=== PATIENT | male | born 1955 | race Caucasian/White ===

== ENCOUNTER 2016-04-18 18:39 | Emergency (ER) | payer MEDICARE ==
[~2016-04-18] VITALS: Ht 180.3 cm; Wt 95.0 kg
[~2016-04-18 18:39] MED LIST changes: -NIACIN FLUSH F400 MG PO
[2016-04-18 18:41] VITALS: TEMP 97.9
[2016-04-18] MEDS ORDERED: NIACIN FLUSH F400 MG PO (18:59)
[2016-04-18 19:01] LABS: BASO % 0.3 % (0.0-2.0); EOS # 0.2 (0.0-0.7); EOS % 2.3 % (0-4.0); GRAN # 6.1 (1.4-6.5); GRAN % 65.2 % (42.2-75.2); HEMATOCRIT 49.3 % (42.0-52.0); HEMOGLOBIN 16.8 g/dl (13.5-18.0); LYMPH # 2.2 (1.2-3.4); LYMPH % 23.2 % (20.0-51.0); MEAN CELL VOLUME 90 fl (80.0-100.0); MEAN CORPUSCULAR HEMOGLOBIN 31 pg (27.0-31.0); MEAN CORPUSCULAR HGB CONC 34 g/dl (33.0-37.0); MEAN PLATELET VOLUME 9.8 fl (7.4-10.4); MONO # 0.8 (0.1-0.6); MONO % 8.5 % (1.7-9.3); PLATELET COUNT 261 K/mm3 (130-400); RED BLOOD COUNT 5.48 M/mm3 (4.20-5.60); REDCELL DISTRIBUTION WIDTH-CV 12.2 % (11.5-14.5); WHITE BLOOD COUNT 9.4 K/mm3 (4.8-10.8)
[2016-04-18 19:05] LABS: PROTHROMBIN TIME 11.3 SECONDS (9.7-12.8)
[2016-04-18 19:08] LABS: PARTIAL THROMBOPLASTIN TIME 31.6 SECONDS (26.0-37.0)
[2016-04-18 19:11] LABS: ADJUSTED CALCIUM 9.9 mg/dL (8.4-10.2); ALANINE AMINOTRANSFERASE 41 U/L (21-72); ALBUMIN 3.9 gm/dL (3.5-5.0); ALKALINE PHOSPHATASE 92 U/L (50-136); ANION GAP 14 mmol/L (7-16); BILIRUBIN,TOTAL 0.8 mg/dL (0.0-1.0); BLOOD UREA NITROGEN 17 mg/dL (9-20); CALCIUM 9.8 mg/dL (8.4-10.2); CARBON DIOXIDE 27 mmol/L (22-30); CHLORIDE 99 mmol/L (98-107); CREATININE, serum 1.28 mg/dL (0.66-1.25); GLUCOSE 147 mg/dL (74-106); LIPASE 51 U/L (23-300); POTASSIUM 3.9 mmol/L (3.4-5.0); SODIUM 139 mmol/L (137-145); TOTAL PROTEIN 8.5 gm/dL (6.4-8.2)
[2016-04-18 19:22] LABS: TROPONIN-I < 0.012 ng/mL (0.000-0.034)
[2016-04-18 19:59] VITALS: BP 132/92; PULSE 95
== END 2016-04-18 19:24 | disposition short-term general hospital (02) ==
LOC: COL.ER 18:39
PROVIDERS: Emergency Medicine
DX: I21.09 ST elevation (STEMI) myocardial infarction involving other coronary artery of anterior wall (principal); R94.31 Abnormal electrocardiogram [ECG] [EKG]; I10 Essential (primary) hypertension; I25.10 Atherosclerotic heart disease of native coronary artery without angina pectoris; Z87.891 Personal history of nicotine dependence
CPT/HCPCS: J1644; J3101

== ENCOUNTER → 2016-04-18 | Outpatient (REF) ==
[~2016-04-18] MED LIST: ASPIRIN 81M81 MG/TA2 PO; ASPIRIN E.C. 8181 MG PO; BRILINTA90 MG PO; COLACE 100100 MG/CAP PO; FLONASE NASAL S16 GM NS; GLUCOPHAGE500 MG/TAB PO; LEVEMIR FLEXPEN SC; LIPITOR 80MG80 MG PO; LOPRESSOR 225 MG/TAB PO; MEVACOR40 MG PO; NIACIN FLUSH F400 MG PO; NIACIN500 M3 PO; NITROSTAT0.4 MG/TAB SL; NORCO 325 MG-51 TAB PO; NOVOLOG 100U100 U/M1 SC; PLAVIX 75MG TAB75 MG PO; PRINIVIL2.5 MG PO; PROTONIX 40MG T40 MG PO; PROVENTIL0.09 MG/A1 IH
== END ==
LOC: ZLAB.WCH 14:43
DX: Z01.89 Encounter for other specified special examinations (principal)

== ENCOUNTER → 2016-05-02 | Outpatient (REF) ==
[~2016-05-02] MED LIST changes: +NIACIN FLUSH F400 MG PO
== END ==
LOC: ZLAB.WCH 14:44
DX: Z01.89 Encounter for other specified special examinations (principal)

== ENCOUNTER → 2016-06-10 | Outpatient (REF) | LOC: ZLAB.WCH 14:42 | DX: Z01.89 Encounter for other specified special examinations (principal) ==

== ENCOUNTER → 2016-09-06 | Outpatient (REF) | LOC: ZLAB.WCH 10:37 | DX: Z01.89 Encounter for other specified special examinations (principal) ==

== ENCOUNTER → 2016-12-20 | Outpatient (REF) | LOC: ZLAB.WCH 15:41 | DX: Z01.89 Encounter for other specified special examinations (principal) ==

== ENCOUNTER → 2017-01-24 | Outpatient (REF) ==
[2017-01-24 21:44] LABS: THYROID STIMULATING HORMONE 2.14 uIU/mL (0.465-4.680)
== END ==
LOC: ZLAB.WCH 20:56
PROVIDERS: Family Medicine
DX: Z01.89 Encounter for other specified special examinations (principal)

== ENCOUNTER → 2017-03-27 | Outpatient (REF) | LOC: ZLAB.WCH 18:02 | DX: Z01.89 Encounter for other specified special examinations (principal) ==

== ENCOUNTER → 2017-04-04 | Outpatient (CLI) | payer MEDICARE | LOC: COL.RAD 07:48 | DX: I77.810 Thoracic aortic ectasia (principal) | CPT/HCPCS: Q9967 ==

== ENCOUNTER → 2017-07-24 | Outpatient (REF) | LOC: ZLAB.WCH 17:54 | DX: Z01.89 Encounter for other specified special examinations (principal) ==

== ENCOUNTER → 2017-11-05 | Outpatient (REF) ==
[2017-11-05 16:53] LABS: TSH w REFLEX 4.93 uIU/mL (0.465-4.680)
== END ==
LOC: ZLAB.WCH 16:03
PROVIDERS: Psychiatry & Neurology Neurology
DX: Z01.89 Encounter for other specified special examinations (principal)

== ENCOUNTER → 2017-11-14 | Outpatient (REF) | LOC: ZLAB.WCH 16:07 | DX: Z01.89 Encounter for other specified special examinations (principal) ==

== ENCOUNTER → 2018-04-15 | Outpatient (REF) | LOC: ZLAB.WCH 16:07 | DX: Z01.89 Encounter for other specified special examinations (principal) ==

== ENCOUNTER 2022-01-29 23:20 | Inpatient (IN) | payer MEDICARE, MEDICAID ==
[~2022-01-29] VITALS: Ht 180.3 cm; Wt 99.1 kg
[2022-01-29 23:25] VITALS: BP 125/73; PULSE 65; TEMP 97.8
[2022-01-30] MEDS ORDERED: TOUJEO MAX300 UNIT/1 SQ (00:17)
[2022-01-30] MEDS ORDERED: LASIX 20MG TABL20 MG PO (00:19)
[2022-01-30] MEDS ORDERED: COREG12.5 MG PO (00:23)
[2022-01-30] MEDS ORDERED: SINEMET CR1 UDTAB.S1 PO ×2 (00:24→00:56)
[2022-01-30] MEDS ORDERED: JARDIANCE10 PO (00:26)
[2022-01-30] MEDS ORDERED: ALTACE 2.5MG T2.5 MG PO (00:56)
[2022-01-30] MEDS ORDERED: CRESTOR20 MG PO (01:00)
[2022-01-30] MEDS ORDERED: LOFIBRA160 MG PO (01:01)
[2022-01-30 03:52] VITALS: BP 125/77; PULSE 52; TEMP 97.7
[2022-01-30 06:38] LABS: HEMOGLOBIN 13.8 g/dl (13.5-18.0); MEAN CELL VOLUME 98 fl (80.0-100.0); MEAN CORPUSCULAR HEMOGLOBIN 32 pg (27-31); MEAN CORPUSCULAR HGB CONC 32 g/dl (33.0-37.0); MEAN PLATELET VOLUME 10.7 fl (7.4-10.4); PLATELET COUNT 259 K/mm3 (130-400); RED BLOOD COUNT 4.38 M/mm3 (4.20-5.60); REDCELL DISTRIBUTION WIDTH-CV 13.3 % (11.5-14.5)
[2022-01-30 06:55] LABS: ALBUMIN 2.7 gm/dL (3.4-4.8); BILIRUBIN,TOTAL 0.5 mg/dL (0.2-1.2); CALCIUM 9.4 mg/dL (8.4-10.2); CHOLESTEROL RISK RATIO 3.7; CREATININE, serum 3.05 mg/dL (0.72-1.25); POTASSIUM 5.2 mmol/L (3.5-4.5); TOTAL PROTEIN 7.8 gm/dL (6.2-8.1)
[2022-01-30 07:21] VITALS: BP 134/68; PULSE 68; TEMP 97.8
--- NOTE | 2022-01-30 10:09 | NUR ---
PT RESTING IN BED. MORNING MEDICATIONS GIVEN. SHIFT ASSESSMENT COMPLETED. PT CURRENTLY BREATHING ON 2L OF O2 VIA NC. PT STATES HE DOES NOT FEEL SOB AT REST WITH OXYGEN IN PLACE. DENIES ANY PAIN. CALL LIGHT WITHIN REACH. FALL PRECAUTIONS IN PLACE. WILL CONTINUE TO MONITOR.
--- NOTE | 2022-01-30 10:32 | NUR ---
Initial visit; A very robust friendly fellow who welcomed Gasoline Power Shovel Operator. There was a nice conversation though patient declined Spiritual Care. Gasoline Power Shovel Operator wished him a rapid recovery.
[2022-01-30 11:02] VITALS: BP 112/62; PULSE 63; TEMP 97.7
--- NOTE | 2022-01-30 14:39 | NUR ---
Oracle Consultant met with patient to discuss discharge planning. Patient lives in [place] and sees Dr. Julio for primary care. Patient obtains medications from the pharmacy in [place] with no difficulties. Patient reported he has a nebulizer, cane, and walker at home. Patient does not normally wear oxygen but advised he may need it when he goes home. SW advised she will assist with this. Patient reports he is normally independent with ADLS and plans to return home at time of discharge. Patient reports he has services from [facility] including a weekly bath aide. Patient would like to continue services with [facility] at time of discharge. When asked about next of kin, patient states he is not in close contact with his family. Patient is not , has no children, and his parents are . Patient has two sisters, Lela and Samina. Patient reports he does not speak to Lela. Patient stated his sister, Samina is his DPOA-HC. GURPREET contacted Boaz at [facility] and faxed updates. Discharge Plan: Home with [facility]
[2022-01-30 15:43] VITALS: BP 114/63; PULSE 64; TEMP 98.3
[2022-01-30 19:40] VITALS: BP 127/74; PULSE 65; TEMP 97.6
--- NOTE | 2022-01-30 21:51 | NUR ---
1830 - PATIENT LAYING IN BED WITH LIGHTS OFF AND WATCHING [employer] AT THIS TIME. PATIENT HAS CALL LIGHT IN HAND. 1999 - PATIENT LAYING IN BED WITH LIGHTS OFF STILL WATCHING TELEVISION. PATIENT REQUESTS TO AMBULATE TO RESTROOM AT THIS TIME. THIS NURSE ASSISTS PATIENT TO BATHROOM AND BACK TO BED. PATIENT DENIES PAIN, NEEDS OR CONCERNS AT THIS TIME. PATIENT HAS CALL LIGHT IN HAND AND IS ENCOURAGED TO CALL WITH ANY NEEDS OR CONCERNS. PATIENT STATES UNDERSTANDING.
[2022-01-31 00:04] VITALS: BP 148/76; PULSE 64; TEMP 97.6
[2022-01-31 04:16] VITALS: BP 114/65; PULSE 57; TEMP 98.2
--- NOTE | 2022-01-31 05:39 | NUR ---
PATIENT HAS HAD AN UNEVENTFUL NIGHT. SHOWING NO SIGNS OR SYMPTOMS OF NEEDS OR CONCERNS. CALL LIGHT HAS REMAINED WITHIN REACH OF PATIENT.
[2022-01-31 06:25] LABS: BASO % 0.1 % (0.0-2.0); GRAN # 16.6 K/mm3 (1.4-6.5); GRAN % 87.5 % (42.2-75.2); HEMATOCRIT 38.3 % (42.0-52.0); LYMPH # 1.2 K/mm3 (1.2-3.4); LYMPH % 6.5 % (20.0-51.0); MEAN CELL VOLUME 100 fl (80.0-100.0); MEAN CORPUSCULAR HEMOGLOBIN 31 pg (27-31); MEAN CORPUSCULAR HGB CONC 31 g/dl (33.0-37.0); MEAN PLATELET VOLUME 10.4 fl (7.4-10.4); MONO % 5.4 % (1.7-9.3); PLATELET COUNT 290 K/mm3 (130-400); RED BLOOD COUNT 3.82 M/mm3 (4.20-5.60); REDCELL DISTRIBUTION WIDTH-CV 13.4 % (11.5-14.5)
[2022-01-31 06:47] LABS: CALCIUM 8.9 mg/dL (8.4-10.2); CREATININE, serum 2.55 mg/dL (0.72-1.25); MAGNESIUM 2.3 mg/dL (1.6-2.6); POTASSIUM 4.6 mmol/L (3.5-4.5)
[2022-01-31 08:00] VITALS: BP 120/67; PULSE 54; TEMP 97.7
[2022-01-31 12:00] VITALS: BP 136/82; PULSE 58; TEMP 97.7
[2022-01-31 16:00] VITALS: BP 131/74; PULSE 57; TEMP 98.3
--- NOTE | 2022-01-31 18:00 | NUR ---
Shift assessment performed. Scheduled medications given. Patient A&O. Currently on RA. VSS. Patient denies any pain, discomfort, SOA, or further needs at this time. Call light in reach. Fall precautions in place.
[2022-01-31 20:59] VITALS: BP 116/58; PULSE 62; TEMP 97.4
[2022-02-01] VITALS: BP 117/66; PULSE 50; TEMP 97.7
[2022-02-01 04:18] VITALS: BP 128/64; PULSE 56; TEMP 98
[2022-02-01 08:00] VITALS: BP 132/72; PULSE 56; TEMP 97.5
[2022-02-01] MEDS ORDERED: PROVENTIL0.09 MG/A1 IH ×2 (08:17)
[2022-02-01] MEDS ORDERED: DOXYCYCLINE 10100 MG PO ×2 (08:18)
[2022-02-01] MEDS ORDERED: PREDNISONE20 MG PO ×2 (08:19)
[2022-02-01 08:53] LABS: HEMATOCRIT 43.8 % (42.0-52.0); HEMOGLOBIN 13.8 g/dl (13.5-18.0); MEAN CELL VOLUME 101 fl (80.0-100.0); MEAN CORPUSCULAR HEMOGLOBIN 32 pg (27-31); MEAN CORPUSCULAR HGB CONC 32 g/dl (33.0-37.0); MEAN PLATELET VOLUME 10.8 fl (7.4-10.4); PLATELET COUNT 308 K/mm3 (130-400); RED BLOOD COUNT 4.36 M/mm3 (4.20-5.60); REDCELL DISTRIBUTION WIDTH-CV 13.2 % (11.5-14.5)
[2022-02-01 09:12] LABS: CALCIUM 9.5 mg/dL (8.4-10.2); CREATININE, serum 2.23 mg/dL (0.72-1.25); POTASSIUM 5.2 mmol/L (3.5-4.5)
[2022-02-01 09:39] LABS: LYMPHOCYTE 17 % (20.0-51.0); NEUTROPHILS 78 % (42.0-75.2)
[2022-02-01 09:40] LABS: HYPOCHROMIA 2+; PLATELET ESTIMATE NORMAL (NORMAL)
--- NOTE | 2022-02-01 10:47 | NUR ---
Logging Crew Supervisor met with patient to present and review IM form. Patient verbalized understanding and provided signature. SW placed form in chart and provided copy to patient. SW spoke with RT and patient will not qualify for home oxygen. GURPREET contacted Boaz at [facility] and faxed discharge orders. Discharge Plan: Home with [facility]
--- NOTE | 2022-02-01 11:34 | NUR ---
Shift assessment preformed. Scheduled medications given. Coreg held due to pulse under 60. Remainder of VSS. Patient A&O. Currently on RA. Patient deemed fit for discharge. D/C education/instructions given. All questions answered. IV DC'd catheter intact, no signs of phlebitis. Patient denies any further pain, discomfort, SOA, or further needs at this time. Patient escorted from building via wheelchair by [facility] Staff. Friend transporting home.
--- NOTE | 2022-02-03 11:10 | NUR ---
Received call from [place] at [facility] re:blood culture results. Confirmed that patient was discharged from this hospital on 02/01 on PO Doxycycline. Florida will forward information to Eliza with infection control.
== END 2022-02-01 11:38 | disposition home health service (06) | DRG 189 ==
LOC: MEDICAL 23:20
PROVIDERS: Internal Medicine; Physician Assistant; ADMIT Internal Medicine
DX: J96.01 Acute respiratory failure with hypoxia (principal); J44.1 Chronic obstructive pulmonary disease with (acute) exacerbation; N18.4 Chronic kidney disease, stage 4 (severe); G93.40 Encephalopathy, unspecified; G20 Parkinson's disease; E78.5 Hyperlipidemia, unspecified; E66.9 Obesity, unspecified; K21.9 Gastro-esophageal reflux disease without esophagitis; I12.9 Hypertensive chronic kidney disease with stage 1 through stage 4 chronic kidney disease, or unspecified chronic kidney disease; E11.22 Type 2 diabetes mellitus with diabetic chronic kidney disease; I25.10 Atherosclerotic heart disease of native coronary artery without angina pectoris; Z87.891 Personal history of nicotine dependence; Z95.5 Presence of coronary angioplasty implant and graft; I25.2 Old myocardial infarction; Z79.4 Long term (current) use of insulin; Z23 Encounter for immunization; Z68.30 Body mass index [BMI] 30.0-30.9, adult
CPT/HCPCS: A9540; A9567; J1644; J1815; J7030; J7512

== ENCOUNTER 2023-07-16 21:43 | Inpatient (IN) | payer MEDICARE, MEDICAID ==
[~2023-07-16] VITALS: Ht 175.3 cm; Wt 86.0 kg
[~2023-07-16 21:43] MED LIST changes: +ALTACE 2.5MG T2.5 MG PO; +COREG 3.123.125 MG/T PO; +CRESTOR20 MG PO; +CVS GLUCOSE BIT1 CTB PO; +DOXYCYCLINE 10100 MG PO; +EPIPEN 2-PAK1 MG/ML IM; +HUMALOG PEN100 U/ML SQ; +IPRATROPIUM BROM3 M1 IH; +JARDIANCE10 PO; +LANTUS SOLOS100 U/ML SQ; +LASIX 20MG TABL20 MG PO; +LEXAPRO 10MG10 MG PO; +LOFIBRA160 MG PO; +MIRALAX510G PO; +NIZORAL SHAMPO120 M1 TP; -NOVOLOG 100U100 U/M1 SC; +NOVOLOG FLEX100 U/ML SQ; +OZEMPIC1 MG/0.71 SQ; +PREDNISONE20 MG PO; +RANEXA 500MG T500 MG PO; +RANEXA1000 MG PO; +REFRESH TEARS 330 ML OU; +SENNA-S 50 MG-81 TAB PO; +SINEMET CR1 UDTAB.S1 PO; +SODIUM BICARBO650 MG PO; +VASCEPA1 GM PO; +VENTOLIN0.09 MG IH; +XALATAN EYE DROPS OU; +ZOFRAN 4MG T4 MG/TAB PO
[2023-07-16 22:01] LABS: BASO % 0.3 % (0.0-2.0); EOS # 0.2 K/mm3 (0.0-0.7); EOS % 1.1 % (0.0-4.0); GRAN # 10.6 K/mm3 (1.4-6.5); GRAN % 80.6 % (42.2-75.2); HEMATOCRIT 49.3 % (42.0-52.0); HEMOGLOBIN 16.1 g/dl (13.5-18.0); LYMPH # 1.1 K/mm3 (1.2-3.4); LYMPH % 8.6 % (20.0-51.0); MEAN CELL VOLUME 97 fl (80.0-100.0); MEAN CORPUSCULAR HEMOGLOBIN 32 pg (27-31); MEAN CORPUSCULAR HGB CONC 33 g/dl (33.0-37.0); MEAN PLATELET VOLUME 9.8 fl (7.4-10.4); MONO # 1.2 K/mm3 (0.1-0.6); MONO % 8.9 % (1.7-9.3); PLATELET COUNT 252 K/mm3 (130-400); RED BLOOD COUNT 5.08 M/mm3 (4.20-5.60); REDCELL DISTRIBUTION WIDTH-CV 12.9 % (11.5-14.5)
[2023-07-16 22:06] LABS: INR 1.2 (0.8-3.0); PROTHROMBIN TIME 12.8 SECONDS (9.7-12.8)
[2023-07-16 22:21] LABS: ALANINE AMINOTRANSFERASE < 6 U/L (0-55); ALBUMIN 2.7 g/dL (3.4-4.8); ALKALINE PHOSPHATASE 82 U/L (40-150); ANION GAP 12 mmol/L (7-16); AST,SGOT 12 U/L (5-34); BILIRUBIN,TOTAL 0.9 mg/dL (0.2-1.2); BLOOD UREA NITROGEN 20 mg/dL (8-26); CALCIUM 9.8 mg/dL (8.4-10.2); CHLORIDE 102 mEq/L (98-107); CREATININE, serum 1.51 mg/dL (0.72-1.25); GLUCOSE 147 mg/dL (70-99); LIPASE 21 U/L (8-78); POTASSIUM 4.5 mEq/L (3.5-4.5); SODIUM 137 mEq/L (136-145); TOTAL PROTEIN 7.8 g/dl (6.2-8.1)
[2023-07-16 22:27] LABS: TROPONIN-I < 0.010 ng/mL (0.00-0.033)
[2023-07-16 23:30] LABS: URINE APPEARANCE CLEAR (CLEAR/HAZY); URINE BLOOD NEGATIVE (NEGATIVE); URINE COLOR YELLOW (YELLOW); URINE GLUCOSE 3+ (NEGATIVE); URINE KETONE TRACE (NEGATIVE); URINE NITRATE NEGATIVE (NEGATIVE); URINE PROTEIN(semi-quant) 1+ (NEGATIVE)
[2023-07-17] VITALS (14 sets, daily range): BP systolic 123–164; BP diastolic 77–92; PULSE 68–99; TEMP 97.6–99.2
[2023-07-17] MEDS ORDERED: Iohexol 300 - 100 ML VIAL IV ONE (00:06)
[2023-07-17] MEDS ORDERED: NS 100 ML IV SCH (00:07)
[2023-07-17 00:14] LABS: COLLECTION METHOD CLEAN CATCH
[2023-07-17] MEDS ORDERED: NS 1,000 ML IV ONE (00:45)
[2023-07-17] MEDS ORDERED: Ondansetron 4 MG/2 ML VIAL IV ONE (00:45)
[2023-07-17] MEDS ORDERED: Morphine 4 MG/ML VIAL IV ONE (01:00)
[2023-07-17] MEDS ORDERED: LOPRESSOR 225 MG/TAB PO (01:09)
[2023-07-17] MEDS ORDERED: Albuterol/Ipratropium 3 MG-0.5 MG/3 ML Neb Soln IH PRN (01:15)
[2023-07-17] MEDS ORDERED: Acetaminophen 325 MG TAB PO PRN (01:15)
[2023-07-17] MEDS ORDERED: Ondansetron 4 MG/2 ML VIAL IV PRN (01:15)
[2023-07-17] MEDS ORDERED: Doxycycline Hyclate 100 MG in NS 150 ML IV SCH (01:30)
[2023-07-17] MEDS ORDERED: cefTRIAXone 1 G in Water For Injection,Sterile 10 ML IV SCH (01:30)
--- NOTE | 2023-07-17 01:52 | NUR ---
PRIMARY NURSE CALLED [facility] NURSE TO GET REPORT ON PATIENT COMING TO ROOM #309.
--- NOTE | 2023-07-17 02:10 | NUR ---
MALE PATIENT ARRIVED TO ROOM #309 VIA STRETCHER. PATIENT ASSISTED TO BED WITH SLIDE BOARD. PATIENT TOLERATED WELL. TELEMETRY INTACT. INT TO LEFT FOREARM INTACT WITH NO COMPLICATIONS NOTED. EXTRA SHEETS REMOVED FROM UNDERNEATH PATIENT AND SKIN ASSESSMENT COMPLETED. PATIENT PULLED UP IN BED AND HELPED TO REPOSITION FOR COMFORT. INITAL INTAKE ATTEMPTED TO BE COMPLETED BUT PATIENT UNABLE TO ANSWER QUESTIONS ABOUT MED REC AND SUPPORT PERSON. SUPPORT PERSON TAKEN FROM FACE SHEET. PATIENT PLACED IN YELLOW GOWN AND YELLOW NON-SKID SOCKES. PATIENT VERBALIZED UNDERSTANDING OF CALL LIGHT AND BED CONTROLS. ALL NEEDS MET. BED IN LOW POSITION WITH WHEELS LOCKED WITH RAILS UP X3 AND CALL LIGHT WITHIN REACH. BED ALARM ON.
--- NOTE | 2023-07-17 02:34 | NUR ---
PATIENT RESTING IN BED WITH EYE CLOSED WITH TV OFF WITH NO FAMILY PRESENT WITH NO ACUTE DISTRESS NOTED. PATIENT ON 2 LITERS OF OXYGEN VIA NC. INT TO LEFT FOREARM INTACT WITH NO COMPLICATIONS NOTE. TELMETRY INTACT. MEDICATION ADMINISTRATION COMPLETED AT THIS TIME. SEE EMAR. PATIENT TOLERATED WELL. PATIENT LIGHT TURNED OF PER REQUEST. ALL NEEDS MET. BED IN LOW POSITION WITH WHEELS LOCKED WITH RAILS UP X3 AND CALL LIGHT WITHIN REACH. BED ALARM ON.
[2023-07-17] MEDS ORDERED: NS 1,000 ML IV SCH (03:30)
[2023-07-17] MEDS ORDERED: Dextrose 50% Water 25 GM/50 ML SYRINGE IV PRN (04:00)
[2023-07-17] MEDS ORDERED: Glucagon 1 MG VIAL IM PRN (04:00)
[2023-07-17] MEDS ORDERED: Dextrose (Glucose) 15 GM (4 x 3.75 GM) Chewable TABLET PACK PO PRN (04:00)
[2023-07-17] MEDS ORDERED: Insulin Lispro (HumaLOG) SQ SCH (08:00)
--- NOTE | 2023-07-17 08:27 | NUR ---
spoke to Hannah at [facility] about update on pt, Hannah left phone number ([phone]) for social work for updates on patient.
[2023-07-17] MEDS ORDERED: Sennosides/Docusate 8.6-50 MG TAB PO SCH ×2 (09:00)
--- NOTE | 2023-07-17 09:00 | NUR ---
pt awake resting in bed. vss and tele in place. pt rates pain in RLQ of his abdomen a 5/10, denies wanting tylenol. pt abdomen is distended, reports passing gas and had a BM yesterday. pt does not want to eat breakfast this morning. pt on 2L nasal cannula. fluids infusing into left forearm. pt denies needs at this time. call light in reach. fall precautions in place.
[2023-07-17] MEDS ORDERED: OZEMPIC0.25 MG/02 SQ (10:19)
[2023-07-17] MEDS ORDERED: INSULIN AS100 UNIT/3 SQ ×2 (10:22→10:51)
[2023-07-17] MEDS ORDERED: NIZORAL SHAMPO120 M1 TP (10:23)
[2023-07-17] MEDS ORDERED: INSULIN GL100 UNIT/2 SQ (10:23)
[2023-07-17] MEDS ORDERED: XALATAN EYE DROPS OD (10:23)
--- NOTE | 2023-07-17 10:34 | NUR ---
boning room worker met with pt to discuss discharge planning. Pt answered best using yes/no questions. He confirmed he lives at [facility]. He sees Dr. Caicedo and obtains medications through the alf with no issues. He reports his contact as his sister, Samina [phone]. He states he is not independent with ADLs and requires full assistance. He states he uses a wheelchair for DME. GURPREET spoke with Hannah [phone] to confirm where pt is from. She states pt is there for long-term care. GURPREET stated she will fax updates when she has them. Discharge Plan: return to [facility]
[2023-07-17] MEDS ORDERED: SINEMET CR1 UDTAB.S1 PO (10:50)
--- NOTE | 2023-07-17 11:45 | NUR ---
pt off floor for VQ scan
--- NOTE | 2023-07-17 12:54 | NUR ---
daycare worker faxed updated to [facility]. Discharge Plan: return to [facility]
--- NOTE | 2023-07-17 14:07 | NUR ---
pt reports feeling "hot", temperature taken and is 98.3. turned down thermostat in room and took blankets off of pt.
[2023-07-17] MEDS ORDERED: HYDROmorphone 0.5 MG/0.5 ML SYRINGE IV PRN (18:15)
--- NOTE | 2023-07-17 18:27 | NUR ---
pt reports increased pain after tylenol was given, spoke to Miguel Ángel QUIÑONES about getting patient something stronger for pain and a diet so he can have something to drink until midnight.
[2023-07-17] MEDS ORDERED: oxyCODONE 5 MG TAB PO PRN (18:45)
[2023-07-17] MEDS ORDERED: Morphine 4 MG/ML VIAL IV PRN (18:45)
[2023-07-17] MEDS ORDERED: Ranolazine ER 500 MG TAB PO SCH (21:00)
[2023-07-17] MEDS ORDERED: Latanoprost 0.005% Ophth Soln 2.5 ML BOTTLE OP SCH (21:00)
[2023-07-18] VITALS (96 sets, daily range): BP systolic 111–146; BP diastolic 72–89; PULSE 81–89; TEMP 97.9–98.9; O2SAT 88–95
[2023-07-18] MEDS ORDERED: Indocyanine Green 6.25 MG in Water For Injection,Sterile 1.25 ML IV SCH (04:00)
[2023-07-18] MEDS ORDERED: NS 1,000 ML IV SCH (06:00)
[2023-07-18] MEDS ORDERED: Carbidopa/Levodopa CR 25-100MG TAB PO SCH (06:00)
[2023-07-18 06:47] LABS: HEMATOCRIT 46.3 % (42.0-52.0); HEMOGLOBIN 15.7 g/dl (13.5-18.0); MEAN CELL VOLUME 95 fl (80.0-100.0); MEAN CORPUSCULAR HEMOGLOBIN 32 pg (27-31); MEAN CORPUSCULAR HGB CONC 34 g/dl (33.0-37.0); MEAN PLATELET VOLUME 9.9 fl (7.4-10.4); PLATELET COUNT 252 K/mm3 (130-400); RED BLOOD COUNT 4.88 M/mm3 (4.20-5.60); REDCELL DISTRIBUTION WIDTH-CV 13.4 % (11.5-14.5)
[2023-07-18 07:08] LABS: CALCIUM 9.6 mg/dL (8.4-10.2); CREATININE, serum 1.42 mg/dL (0.72-1.25); POTASSIUM 4.4 mEq/L (3.5-4.5)
--- NOTE | 2023-07-18 07:15 | NUR ---
BEDSIDE RPORT RECIVED. PATIENT NPO FOR LA ALAN. PATIENT DENIES ANY NEEDS AT THIS TIME. 02 AT 4LNC. PATIENT IVF INFUSING PER ORDERS. FALL PRECAUTIONS IN PLACE. BED ALARM TURNED ON, CALL LIGHT WITHIN REACH.
[2023-07-18 07:18] LABS: THYROID STIMULATING HORMONE 1.596 uIU/mL (0.350-4.940)
--- NOTE | 2023-07-18 07:26 | NUR ---
RN SAW ORDER FOR ICGREEN, CALLED PHARMACY FOR IC GREEN INJECTION. PER PHARMACY TO BE GIVEN 30 MINUTES PRIOR. BEING MADE NOW AND WILL BE BROUGHT TO RN SOON READY.
--- NOTE | 2023-07-18 07:31 | NUR ---
THIS RN CALLED PRE OP RN BETTINA REGARDING IC GREEN INJECTION. PER PRE OP NURSE IC GREEN TO BE INJECTED AT MINIMUM AN HOUR BEFORE PROCEDURE. IT CAN BE GIVEN HOURS PRIOR HOWEVER DOES NO T REACH INTRAHEPATIC FOR PROCEDURE WHEN GIVEN LESS THAN AN HOUR FROM PROCEDURE.
--- NOTE | 2023-07-18 07:37 | NUR ---
PHARMACY CALLED THAT RN NEEDS JENNIFER MERCADO ASAP
--- NOTE | 2023-07-18 07:48 | NUR ---
PRE OP NURSE AWARE RN JUST RECIEVED IC GREEN AND IS INJECTIING
--- NOTE | 2023-07-18 08:00 | NUR ---
PATEINT TAKEN TO SURGERY
[2023-07-18 08:02] LABS: BAND 6 % (0-10); LYMPHOCYTE 1 % (20.0-51.0); NEUTROPHILS 87 % (42.0-75.2)
[2023-07-18] MEDS ORDERED: Succinylcholine PF 200 MG/10 ML SYRINGE IV ONE (08:02)
[2023-07-18] MEDS ORDERED: dexAMETHasone 10 MG/ML VIAL ONE (08:02)
[2023-07-18] MEDS ORDERED: fentaNYL 50 MCG/ML 5 ML VIAL ONE (08:02)
[2023-07-18] MEDS ORDERED: Rocuronium 50 MG/5 ML Multi-Dose VIAL ONE (08:02)
[2023-07-18] MEDS ORDERED: Ondansetron 4 MG/2 ML VIAL ONE (08:02)
[2023-07-18] MEDS ORDERED: NS 10 ML IV ONE (08:02)
[2023-07-18] MEDS ORDERED: Etomidate 20 MG/10 ML VIAL IV ONE (08:28)
[2023-07-18] MEDS ORDERED: Topical Skin Adhesive 1 EACH (1 ML) TOP ONE (08:52)
[2023-07-18] MEDS ORDERED: Escitalopram 10 MG TAB PO SCH (09:00)
[2023-07-18] MEDS ORDERED: droPERidol 2.5 MG/ML 2 ML VIAL IV PRN (09:15)
[2023-07-18] MEDS ORDERED: hydrALAZINE 20 MG/ML 1 ML VIAL IV PRN (09:15)
[2023-07-18] MEDS ORDERED: fentaNYL 50 MCG/ML 1 ML SYRINGE/VIAL [PACU/SDC ONLY] IV PRN (09:15)
[2023-07-18] MEDS ORDERED: Ondansetron 4 MG/2 ML VIAL IV PRN (09:15)
[2023-07-18] MEDS ORDERED: HYDROmorphone 1 MG/1 ML SYRINGE [PACU/SDC ONLY] IV PRN (09:15)
[2023-07-18] MEDS ORDERED: NS 500 ML IV SCH (11:00)
--- NOTE | 2023-07-18 11:51 | NUR ---
forestry worker notified patient is transferring to ICU. SW faxed clinical updates to [facility]. Discharge plan: [facility]
--- NOTE | 2023-07-18 11:59 | NUR ---
THIS RN JUST FOUND OUT THROUGH SW NOTE THAT PATIENT IS TO TRANSFER TO ICU FROM PACU. CONFIRMED THIS WITH ENCODING CLERK. THIS RN CALLED TO ICU TO SEE IF REPORT WAS NEEDED, ICU CHARGE TO CALL RN BACK.
--- NOTE | 2023-07-18 12:30 | NUR ---
REPORT GIVEN TO MICROWAVE ENGINEER BETTINA
[2023-07-18] MEDS ORDERED: Clopidogrel 75 MG TAB PO SCH (15:00)
--- NOTE | 2023-07-18 15:45 | NUR ---
Reported off to KIRA Wagner; patient taken upstairs in wheelchair by tech from medical floor. Patient taken up to room 309; all belonging were sent with patient. Patient in stable condition and vital signs within normal limit.
--- NOTE | 2023-07-18 16:00 | NUR ---
PATIENT ARRIVED FROM ICU VIA WHEELCHAIR AWAKE ALERT AND IN STABLE CONDITION. CALL LIGHT WITHIN REACH. FALL PRECAUTIONS IN PLACE. IVF AND ANTX INFUSING. PATIENT DENIES ANY NEEDS OR COMPLAINTS AT THIS TIME, GILBERTO DRAIN TO BULP SUCTION. 3 LAP SITES CDI WITH GLUE.
--- NOTE | 2023-07-18 18:38 | NUR ---
PATINET AWAKE AND ALERT, SITTIGN UP IN BED. PATIENT DENIES ANY NEEDS OR COMPLAINTS AT THIS TIME, FALL PRECAUTIONS IN PLACE, CALL LIGHT WITHIN REACH.
--- NOTE | 2023-07-18 20:30 | NUR ---
UPON SHIFT ASSESSMENT, "JOHN" WAS IN BED ASLEEP WITH OXYMASK AT 3L. HE WAS EASY TO AROUSE AND SURGICAL SITES TO ABDOMEN CDI. GILBERTO DRAIN SET TO BULB SUCTION WITH 10 ML DARK BLOOD DRAINAGE. ABDOMEN EDEMENOUS. JOHN C/O OF NO PAIN OR NEEDS AT THIS TIME AND WAS EAGER TO RETURN TO SLEEP. VS WNL, TELE IS NS 85 BPM. STATES NO NEEDS AT THIS TIME.
--- NOTE | 2023-07-18 22:00 | NUR ---
CALL PLACED TO RT. PATIENT HAS ORDERS FOR CPAP, HOWEVER HAS NO Hx OF ROBYN AND HAS NEVER USED CPAP. RT STATED SHE WOULD CONSULT WITH PATIENT AND TRY TO PLACE CPAP. PATIENT REFUSED CPAP, PERFERS OXYMASK THAT IS ALREADY IN PLACE.
[2023-07-19] VITALS (12 sets, daily range): BP systolic 112–145; BP diastolic 71–84; PULSE 56–963; TEMP 97.6–98.4
--- NOTE | 2023-07-19 03:46 | NUR ---
EMPTIED GILBERTO DRAIN-50ML DARK RED BLOOD.
[2023-07-19 07:04] LABS: BASO % 0.2 % (0.0-2.0); GRAN # 18.6 K/mm3 (1.4-6.5); HEMATOCRIT 44.3 % (42.0-52.0); HEMOGLOBIN 14.5 g/dl (13.5-18.0); LYMPH # 0.8 K/mm3 (1.2-3.4); LYMPH % 3.9 % (20.0-51.0); MEAN CELL VOLUME 96 fl (80.0-100.0); MEAN CORPUSCULAR HEMOGLOBIN 32 pg (27-31); MEAN CORPUSCULAR HGB CONC 33 g/dl (33.0-37.0); MEAN PLATELET VOLUME 10.4 fl (7.4-10.4); MONO # 1.1 K/mm3 (0.1-0.6); MONO % 5.2 % (1.7-9.3); PLATELET COUNT 256 K/mm3 (130-400); REDCELL DISTRIBUTION WIDTH-CV 13.6 % (11.5-14.5)
[2023-07-19 07:17] LABS: ALBUMIN 1.8 g/dL (3.4-4.8); BILIRUBIN,TOTAL 0.5 mg/dL (0.2-1.2); CALCIUM 9.5 mg/dL (8.4-10.2); CREATININE, serum 1.44 mg/dL (0.72-1.25); POTASSIUM 4.8 mEq/L (3.5-4.5); TOTAL PROTEIN 6.8 g/dl (6.2-8.1)
--- NOTE | 2023-07-19 07:25 | NUR ---
PATIENT ASLEEP, AROUSES TO NAME AND TOUCH. PATIENT DENIES ANY NEEDS OR COMPLAINTS AT THIS TIME. FALL PRECAUTIONS IN PLACE. CALL LGIHT WITHIN REACH. PATIENTS GILBERTO DRAIN TO RQ IS TO BULB SUCITON. IVF INFUSING ORDERED.
--- NOTE | 2023-07-19 08:00 | NUR ---
KENDALL AWAKE AND ALERT SITTING UP IN BED. O2 CHANGED TO NC WITH O2 FLOW RATE @ 2L. PATIENT GIVEN BED BATH, WITH GOWN CHANGE AND KATHIE CARE. GOAL TO GET UP TO RELCINER LATER FOR BED LINEN CHANGE. PATIENT DENIES ANY NEEDS OR COMPLAINTS AT THIS TIME. FALL PRECAUTIONS IN PLACE. CALL LIGHT WITHIN REACH.
[2023-07-19] MEDS ORDERED: Benzocaine Topical 200 (One Second) Sprays/57 GM Bottle MM PRN (11:30)
--- NOTE | 2023-07-19 12:16 | NUR ---
Data: Patient was sleeping during Mangle Roller rounds. Assessment: None at this time. Plan of Care: Chaplains will remain available as needed/requested while Patient is admitted to this hospital.
--- NOTE | 2023-07-19 13:00 | NUR ---
PATIENT RESTING IN BED. PATIENT AROUSES EASILY TO NAME. CALL LIGHT WITHIN REACH, FALL PRECAUTIONS INPLACE. PATIENT DENIES ANY PAIN AT THIS TIME.
[2023-07-19] MEDS ORDERED: Phenol 1.4% Spray 180 ML BOTTLE MM PRN (14:15)
--- NOTE | 2023-07-19 18:15 | NUR ---
PATIENT AWAKE AND ALERT, SITITNG UP IN BED. PATIENTS GILBERTO DRAIN WITH 50CC OF OUTPUT. DRAINAGE NOTED TO GILBERTO INSERTION SITE DRESSING, DRESSING CHANGED BY THIS RN. PATIENT DENIES ANY NEEDS AT THIS TIME, CALL LIGHT WITHIN REACH,FALL PRECAITIONS IN PLACE.
--- NOTE | 2023-07-19 20:30 | NUR ---
UPON SHIFT ASSESSMENT, "JOHN" WAS AWAKE IN BED EATING DINNER TRAY. HE IS AXO X4 AND CURRENT VS ARE WNL. TELE IS NS. GILBERTO DRAIN EXHIBITS 20ML SEROSANGUINEOUS FLUID. PATIENT CURRENTLY DENIES PAIN OR SOA. CRACKLES IN UPPER RESPIRATORY CLEAR WITH COUGH. SURGICAL SITES ARE CDI. PATIENT STATES NO NEEDS AT THIS TIME. CALL LIGHT WITHIN REACH, BEDALARM ON.
[2023-07-19] MEDS ORDERED: Rosuvastatin 20 MG **** subs to Atorvastatin 40 MG PO SCH (21:00)
[2023-07-19] MEDS ORDERED: Atorvastatin 40 MG TAB PO SCH (21:00)
[2023-07-20] VITALS (11 sets, daily range): BP systolic 116–156; BP diastolic 70–92; PULSE 51–60; TEMP 97.4–97.9
--- NOTE | 2023-07-20 04:10 | NUR ---
PANNUS MOIST AND PINK-NO EXCORIATION-INTERDRY PLACED.
[2023-07-20 06:41] LABS: BASO % 0.2 % (0.0-2.0); EOS % 0.1 % (0.0-4.0); GRAN # 14.5 K/mm3 (1.4-6.5); GRAN % 87.6 % (42.2-75.2); HEMATOCRIT 45.2 % (42.0-52.0); HEMOGLOBIN 14.4 g/dl (13.5-18.0); LYMPH % 6.3 % (20.0-51.0); MEAN CELL VOLUME 98 fl (80.0-100.0); MEAN CORPUSCULAR HEMOGLOBIN 31 pg (27-31); MEAN CORPUSCULAR HGB CONC 32 g/dl (33.0-37.0); MEAN PLATELET VOLUME 10.5 fl (7.4-10.4); MONO # 0.9 K/mm3 (0.1-0.6); MONO % 5.1 % (1.7-9.3); PLATELET COUNT 245 K/mm3 (130-400); RED BLOOD COUNT 4.62 M/mm3 (4.20-5.60); REDCELL DISTRIBUTION WIDTH-CV 13.8 % (11.5-14.5)
[2023-07-20 06:45] LABS: CALCIUM 9.6 mg/dL (8.4-10.2); CREATININE, serum 1.35 mg/dL (0.72-1.25); POTASSIUM 4.9 mEq/L (3.5-4.5)
--- NOTE | 2023-07-20 06:45 | NUR ---
PATIENT ASLEEP, EASILY AWAKES TO NAME. IV ANTIBIOTICS INFUSING. CALL LIGHT WITHIN REACH. PATIENT DENEIS ANY PAIN OR DISCOMFORT AT THIS TIME. FALL PRECAUTIONS IN PLACE.
[2023-07-20] MEDS ORDERED: Sodium Zirconium Cyclosilicate for Oral Susp 10 GM PACKET PO ONE (07:45)
--- NOTE | 2023-07-20 10:33 | NUR ---
ATTEMPTED TO WEAN PATIET FROM O2. PATIENTS O2 SATURATION WAS 95% ON 3LNC. ON 2 AND 1 L NC PATIENTS O2 SATURATION MAINTAINED AY 92% FOR 5 MINUTES. PATIENT PLACED ON ROOM AIR, HOWEVER WITHIN A COUPLE MINUTES HIS OXYGEN SATURATION WAS 83%. PATIENT PLACED ON 4LNC TO HELP O2 SATURATION REACH 95%.PATIENT NOW ON 3LNC WITH AN OXYGEN SATURATION OF 92%. MD NOTIFIED.
--- NOTE | 2023-07-20 11:26 | NUR ---
SW faxed clinical updates.
--- NOTE | 2023-07-20 13:00 | NUR ---
PATIENT AWAKE AND ALERT SITITNG UP IN THE RECLINER.. PAITENT DENIES ANY NEEDS OR COMPLAINTS AT THIS TIME. FALL PRECAUTIONS IN PLACE. CALLLIGHT WITHIN REACH.
[2023-07-20] MEDS ORDERED: Iohexol 300 - 100 ML VIAL IV ONE (13:42)
--- NOTE | 2023-07-20 14:59 | NUR ---
CALLED AND INFORMED OF FINDINGS ON CT CHEST. CROSS COUNTRY TRUCK DRIVER AWARE. INFO CLOUDED TO JUAN DANIEL
--- NOTE | 2023-07-20 15:47 | NUR ---
PATINET AWAKE AND ALERT, SITTING UP IN BED. PATIENT DENIES ANY SOB OR PAIN AT THIS TIME. FALL PRECAUIONS INPLACE. CALL LIGHT WTIHIN REACH. IV ANTX INFUSING ORDERED.
[2023-07-20] MEDS ORDERED: Heparin/D5W 250 ML IV SCH (16:00)
[2023-07-20] MEDS ORDERED: Heparin 5,000 UNITS/ML 1 ML VIAL IV PRN (16:00)
[2023-07-20] MEDS ORDERED: Heparin 5,000 UNITS/ML 1 ML VIAL IV ONE (16:00)
--- NOTE | 2023-07-20 16:18 | NUR ---
THREE FAILED ATTEMOTS FOR IV PLACEMENT BY TWO RNS. REPLANTER CALLED AND WILL ATTEMPT PERIPHERAL IV PLACEMENT. AWAITING LAB DRAW FOR HEPARIN DRIP INITIATION.
--- NOTE | 2023-07-20 16:19 | NUR ---
PER LAB A PHLEB IS ON THE WAY TO DRAW LABS
[2023-07-20 16:54] LABS: PARTIAL THROMBOPLASTIN TIME 28.2 SECONDS (26.0-37.0)
--- NOTE | 2023-07-20 20:15 | NUR ---
Initial shift assessment done- denies pain, speaks softly, throat raw/sore, hoarse, o2 at 3L/nc -denies SOB, Tele on- SB in the 50,s ,Heparin drip infusing at 16cc/hr{1600 units/hr}, next hepxa at 2300 tonight. 3 abd lap site aproximated/glued, GILBERTO drain to RLL with serosanguinous drainage.
--- NOTE | 2023-07-20 23:40 | NUR ---
Hepxa cane back high, >1.0,, heparin drip stopped for 2 hours and new hepxa to be drawm at 0130. Pt is denying pain , just trying to rest.
[2023-07-21] VITALS (13 sets, daily range): BP systolic 110–142; BP diastolic 56–87; PULSE 57–76; TEMP 97.4–98.1
--- NOTE | 2023-07-21 02:45 | NUR ---
Have been talking with lab regarding the hepxa 3 staff have tried to draw and have been unable to,,, [facility]. heparin drip remains on hold.
--- NOTE | 2023-07-21 03:40 | NUR ---
Ba MALONEgrinding room supervisor was able to get blood drawn for hepxa,, will send down to lab.
[2023-07-21 04:35] LABS: BASO % 0.2 % (0.0-2.0); EOS % 0.4 % (0.0-4.0); GRAN # 8.7 K/mm3 (1.4-6.5); GRAN % 81.2 % (42.2-75.2); HEMATOCRIT 42.8 % (42.0-52.0); HEMOGLOBIN 13.8 g/dl (13.5-18.0); LYMPH % 9.2 % (20.0-51.0); MEAN CELL VOLUME 97 fl (80.0-100.0); MEAN CORPUSCULAR HEMOGLOBIN 31 pg (27-31); MEAN CORPUSCULAR HGB CONC 32 g/dl (33.0-37.0); MEAN PLATELET VOLUME 10.7 fl (7.4-10.4); MONO # 0.9 K/mm3 (0.1-0.6); MONO % 8.4 % (1.7-9.3); PLATELET COUNT 264 K/mm3 (130-400); RED BLOOD COUNT 4.41 M/mm3 (4.20-5.60); REDCELL DISTRIBUTION WIDTH-CV 13.7 % (11.5-14.5)
--- NOTE | 2023-07-21 04:50 | NUR ---
Hepxa 0.04, will start heparin drip at 1300units per protocol.
[2023-07-21 05:08] LABS: ALBUMIN 1.7 g/dL (3.4-4.8); BILIRUBIN,TOTAL 0.4 mg/dL (0.2-1.2); CALCIUM 9.1 mg/dL (8.4-10.2); CREATININE, serum 1.48 mg/dL (0.72-1.25); POTASSIUM 4.7 mEq/L (3.5-4.5); TOTAL PROTEIN 6.3 g/dl (6.2-8.1)
--- NOTE | 2023-07-21 06:10 | NUR ---
GILBERTO dressing changed- serosanguinous drainage,, had 500cc out of GILBERTO this shift.VSS, o2 sats 97% on 3L/NC, has been resting well, Heparin drip at 1300units/hour.
--- NOTE | 2023-07-21 08:39 | NUR ---
Patient resting in bed, alert and oriented x 4, denies any pain at this time. 20 mls outputs from GILBERTO, site clean, dry intact. Dressing changed by night RN. 3 lap sites CDI, edges well aproximated. Telemetry in place, hep gtt 1300units per hr. Getting 3L O2 NC. Getting zosyn per orders. Assessment completed, meds given. Dr. Johnston just arriving. No further needs at this time. Call light within reach.
[2023-07-21] MEDS ORDERED: Sodium Zirconium Cyclosilicate for Oral Susp 10 GM PACKET PO ONE (08:45)
--- NOTE | 2023-07-21 09:17 | NUR ---
Set Builder spoke with GURPREET Linn at [facility] and send updates via secure email. GURPREET advised per Hospitalist, earliest discharge would be tomorrow. Temitope requested SNF orders for patient. Discharge Plan; [facility]
--- NOTE | 2023-07-21 17:39 | NUR ---
GILBRETO removed per orders. Pt tolerated well. Now resting.
--- NOTE | 2023-07-21 18:27 | NUR ---
Patient resting in bed. He had dinner. Continues getting hep gtt per orders. Rate at goal. Report will be given to night RN.
--- NOTE | 2023-07-21 20:45 | NUR ---
Initial shift assessment done- pleasant/oriented x4, Helped up to bathroom with walker- had a large loose/soft stool, tele on SR 70, Abd sites x3 approximated/glued, GILBERTO has been removed- dressing over site is dry and intact, IV of heparin drip at 13cc/hr to L/AC site. Did eat a small snack before bed tonight-
[2023-07-22] VITALS (12 sets, daily range): BP systolic 106–142; BP diastolic 69–78; PULSE 61–77; TEMP 97.5–98.7
--- NOTE | 2023-07-22 04:49 | NUR ---
Did sleep fair last night, VSS, Up to bathroom with walker /assist- Heparin drip continues at 13cc/hr.
[2023-07-22 06:44] LABS: HEMATOCRIT 44.8 % (42.0-52.0); HEMOGLOBIN 14.7 g/dl (13.5-18.0); MEAN CELL VOLUME 95 fl (80.0-100.0); MEAN CORPUSCULAR HEMOGLOBIN 31 pg (27-31); MEAN CORPUSCULAR HGB CONC 33 g/dl (33.0-37.0); MEAN PLATELET VOLUME 10.3 fl (7.4-10.4); PLATELET COUNT 274 K/mm3 (130-400); RED BLOOD COUNT 4.74 M/mm3 (4.20-5.60); REDCELL DISTRIBUTION WIDTH-CV 13.6 % (11.5-14.5)
[2023-07-22 07:08] LABS: ALBUMIN 1.8 g/dL (3.4-4.8); BILIRUBIN,TOTAL 0.5 mg/dL (0.2-1.2); CALCIUM 9.1 mg/dL (8.4-10.2); CREATININE, serum 1.42 mg/dL (0.72-1.25); TOTAL PROTEIN 6.2 g/dl (6.2-8.1)
[2023-07-22 07:37] LABS: BURR CELLS 1+; EOSINOPHIL 2 % (0-4); LYMPHOCYTE 11 % (20.0-51.0); METAMYELOCYTE 3 % (0-0); NEUTROPHILS 74 % (42.0-75.2); NUCLEATED RED BLOOD CELL 1 (0-6); PLATELET ESTIMATE NORMAL (NORMAL)
--- NOTE | 2023-07-22 10:53 | NUR ---
Tele called due to leads coming off. OT in with pt at this time. Assisted him with getting cleaned up and new gown applied
--- NOTE | 2023-07-22 13:46 | NUR ---
stoneworker secure emailed updates to [facility].
--- NOTE | 2023-07-22 14:34 | NUR ---
Pt off the floor for MRI
[2023-07-22] MEDS ORDERED: Gadoterate 20 ML VIAL IV ONE (14:52)
--- NOTE | 2023-07-22 15:00 | NUR ---
Received report from Altagracia Crow RN. Pt currently down at MRI.
--- NOTE | 2023-07-22 15:30 | NUR ---
Pt returned from MRI. Placed on tele and Heparin gtt changed back to floor pump. No further needs at this time. Call light in reach.
--- NOTE | 2023-07-22 15:32 | NUR ---
Pt back in his room from MRI. Placed tele back on, no needs verbalized
--- NOTE | 2023-07-22 16:16 | NUR ---
Pt laying in bed after MRI. Pt is A&Ox4. VSS. S1S2 on tele. Clear lungs on 2 L via NC. ABD is rounded, soft, non-tender with audible bowel sounds. Pt has 3 lap sites on ABD with edges well approximated and skin glue. Preious GILBERTO drain site is covered wiht gauze and tape - minimal drainage. IV in L AC has heparin gtt @ 13/hr. IV in L wrist is INT. Pt denies pain, headache, dizziness. No further needs at this time. Call light in reach and bed alarm on.
--- NOTE | 2023-07-22 17:49 | NUR ---
Discontinued heparin gtt, per Dr Farris's orders.
--- NOTE | 2023-07-22 20:00 | NUR ---
Pt. laying in bed. Pt. is A&Ox3, assessment complete. INT to lt. ac and lt. wrist patent. Pt. denies pain or other needs, call light within reach.
[2023-07-23 01:00] VITALS: BP_SYST 126
[2023-07-23 03:41] VITALS: BP 126/79; PULSE 60; TEMP 98.2
[2023-07-23 05:00] VITALS: BP_SYST 126
[2023-07-23 07:08] VITALS: BP 157/83; PULSE 79; TEMP 97.1
[2023-07-23] MEDS ORDERED: INSULIN AS100 UNIT/2 SQ (08:29)
--- NOTE | 2023-07-23 09:40 | NUR ---
Patient resting in bed, alert and orineted x 4, aware going back to [facility]. Denies any pain or discomfort. Assessment completed, meds given, no further needs at this time. Call light within reach.
[2023-07-23 09:41] VITALS: BP_SYST 157
--- NOTE | 2023-07-23 11:07 | NUR ---
Patient is picked up by [facility] it sales representative, by wheelchair, with O2. IV accessess removed. Telemetry discontinued. PPWK provided.
--- NOTE | 2023-07-23 11:49 | NUR ---
Report given to Lauryn Gonzalez Rn.
--- NOTE | 2023-07-23 15:56 | NUR ---
Paper Pattern Inspector met with patient to present and review IM. Patient is ready for discharge to [facility] today. SW verbalized understanding of IM and provided signature. SW placed form in chart and provided copy to patient. SW asked about contacting a family member to notify of discharge and patient shook his head no. GURPREET contacted Temitope at [facility] and sent discharge orders via secure email. Transport time set for 1100. Discharge Plan; [facility]
== END 2023-07-23 11:30 | DRG 417 ==
LOC: COL.ER 21:43 → MEDICAL 07-17 01:11 → ICU 07-18 12:01 → MEDICAL 07-18 16:14
PROVIDERS: Hospitalist; Nurse Practitioner Primary Care; Physician Assistant; Surgery; ADMIT Internal Medicine
PROC: 8E0W4CZ Robotic Assisted Procedure of Trunk Region, Percutaneous Endoscopic Approach (ICD-10-PCS; 2023-07-18)
PROC: 0FT44ZZ Resection of Gallbladder, Percutaneous Endoscopic Approach (ICD-10-PCS; principal; 2023-07-18 08:30)
DX: K80.00 Calculus of gallbladder with acute cholecystitis without obstruction (principal); J95.2 Acute pulmonary insufficiency following nonthoracic surgery; I13.0 Hypertensive heart and chronic kidney disease with heart failure and stage 1 through stage 4 chronic kidney disease, or unspecified chronic kidney disease; I50.22 Chronic systolic (congestive) heart failure; N18.4 Chronic kidney disease, stage 4 (severe); I45.2 Bifascicular block; I25.110 Atherosclerotic heart disease of native coronary artery with unstable angina pectoris; J90 Pleural effusion, not elsewhere classified; R18.8 Other ascites; Z66 Do not resuscitate; G20.A1 Parkinson's disease without dyskinesia, without mention of fluctuations; E78.5 Hyperlipidemia, unspecified; R79.89 Other specified abnormal findings of blood chemistry; I95.9 Hypotension, unspecified; R09.02 Hypoxemia; E87.5 Hyperkalemia; K76.89 Other specified diseases of liver; Z20.822 Contact with and (suspected) exposure to COVID-19; K76.0 Fatty (change of) liver, not elsewhere classified; J44.9 Chronic obstructive pulmonary disease, unspecified; E11.22 Type 2 diabetes mellitus with diabetic chronic kidney disease; Z88.6 Allergy status to analgesic agent; Z95.1 Presence of aortocoronary bypass graft; Z91.018 Allergy to other foods; Z91.010 Allergy to peanuts; I25.2 Old myocardial infarction; Z95.5 Presence of coronary angioplasty implant and graft; Z79.01 Long term (current) use of anticoagulants; Z79.82 Long term (current) use of aspirin; Z79.4 Long term (current) use of insulin; Z79.899 Other long term (current) drug therapy; Z23 Encounter for immunization
CPT/HCPCS: A9270; A9284; A9540-JZ; A9567-JZ; A9575; J0690; J0696; J1100; J1644; J1815; J2270; J2405; J2543; J2704; J3010; J7030; Q9967

== ENCOUNTER 2023-09-21 10:57 | Emergency (ER) | payer MEDICARE, MEDICAID ==
[~2023-09-21] VITALS: Ht 175.3 cm; Wt 84.1 kg
[~2023-09-21 10:57] MED LIST changes: +INSULIN AS100 UNIT/2 SQ; +INSULIN AS100 UNIT/3 SQ; +INSULIN GL100 UNIT/2 SQ; +OZEMPIC0.25 MG/02 SQ; +XALATAN EYE DROPS OD
[2023-09-21 10:58] VITALS: TEMP 97.8
[2023-09-21 11:20] LABS: BASO % 0.3 % (0.0-2.0); EOS # 0.2 K/mm3 (0.0-0.7); EOS % 2.5 % (0.0-4.0); GRAN # 5.6 K/mm3 (1.4-6.5); GRAN % 63.8 % (42.2-75.2); HEMOGLOBIN 14.4 g/dl (13.5-18.0); LYMPH # 2.1 K/mm3 (1.2-3.4); LYMPH % 24.2 % (20.0-51.0); MEAN CELL VOLUME 96 fl (80.0-100.0); MEAN CORPUSCULAR HEMOGLOBIN 31 pg (27-31); MEAN CORPUSCULAR HGB CONC 33 g/dl (33.0-37.0); MEAN PLATELET VOLUME 10.2 fl (7.4-10.4); MONO # 0.8 K/mm3 (0.1-0.6); MONO % 8.7 % (1.7-9.3); PLATELET COUNT 229 K/mm3 (130-400); RED BLOOD COUNT 4.59 M/mm3 (4.20-5.60); REDCELL DISTRIBUTION WIDTH-CV 14.3 % (11.5-14.5)
[2023-09-21 11:31] LABS: INR 1.2 (0.8-3.0); PROTHROMBIN TIME 12.6 SECONDS (9.7-12.8)
[2023-09-21 11:34] LABS: PARTIAL THROMBOPLASTIN TIME 30.2 SECONDS (26.0-37.0)
[2023-09-21 11:39] LABS: ALANINE AMINOTRANSFERASE 7 U/L (0-55); ALBUMIN 2.6 g/dL (3.4-4.8); ALKALINE PHOSPHATASE 78 U/L (40-150); ANION GAP 8 mmol/L (7-16); AST,SGOT 17 U/L (5-34); BILIRUBIN,TOTAL 0.7 mg/dL (0.2-1.2); BLOOD UREA NITROGEN 25 mg/dL (8-26); CALCIUM 9.5 mg/dL (8.4-10.2); CHLORIDE 110 mEq/L (98-107); CREATININE, serum 1.68 mg/dL (0.72-1.25); GLUCOSE 241 mg/dL (70-99); POTASSIUM 4.5 mEq/L (3.5-4.5); SODIUM 138 mEq/L (136-145); TOTAL PROTEIN 6.3 g/dl (6.2-8.1)
[2023-09-21 11:57] LABS: TROPONIN-I < 0.010 ng/mL (0.00-0.033)
[2023-09-21] MEDS ORDERED: fentaNYL 50 MCG/ML 2 ML VIAL IV ONE (12:15)
[2023-09-21 12:29] LABS: COLLECTION METHOD CLEAN CATCH
[2023-09-21 13:20] LABS: PH 7.5 (5.0-8.5); URINE APPEARANCE Clear (CLEAR/HAZY); URINE COLOR YELLOW (YELLOW); URINE GLUCOSE 2+ (NEGATIVE); URINE KETONE Negative (NEGATIVE); URINE NITRATE Negative (NEGATIVE); URINE PROTEIN(semi-quant) Negative (NEGATIVE)
[2023-09-21 13:21] LABS: URINE BLOOD Negative (NEGATIVE)
[2023-09-21] MEDS ORDERED: Iohexol 300 - 100 ML VIAL IV ONE (13:56)
[2023-09-21] MEDS ORDERED: NS 100 ML IV.SOLN. IY SCH (13:57)
[2023-09-21] MEDS ORDERED: Acetaminophen 500 MG TAB PO ONE (16:15)
[2023-09-21 16:30] VITALS: BP 148/89; PULSE 62
== END 2023-09-21 16:30 | disposition short-term general hospital (02) ==
LOC: COL.ER 10:57
PROVIDERS: Emergency Medicine
DX: S00.01XA Abrasion of scalp, initial encounter (principal); S06.6XAA Traumatic subarachnoid hemorrhage with loss of consciousness status unknown, initial encounter; X58.XXXA Exposure to other specified factors, initial encounter; Y92.22 Religious institution as the place of occurrence of the external cause
CPT/HCPCS: A4314; J3010; Q9967